=== PATIENT | male | born 1990 | race Caucasian/White ===

== ENCOUNTER 2016-04-23 18:18 | Emergency (ER) | payer SELFPAY ==
[~2016-04-23] VITALS: Ht 175.3 cm; Wt 74.8 kg
[2016-04-23 18:25] VITALS: BP 131/79
--- NOTE | 2016-04-23 19:15 | NUR ---
26 YO MALE BIB EMS FROM THE FIELD FOR ALTERED MENTAL STAUS DUE TO ETOH INTOXICATION. ER MD AT BEDSIDE, STEPHANIE BUCHANAN.
[2016-04-23 19:30] VITALS: BP 121/77
--- NOTE | 2016-04-23 19:30 | NUR ---
Patient discharged with v/s stable. Written and verbal after care instructions given and explained. Patient alert, oriented and verbalized understanding of instructions. Ambulatory with steady gait. All questions addressed prior to discharge. ID band removed. Patient advised to follow up with PMD.NONE Rx given. Patient educated on indication of medication including possible reaction and side effects. Opportunity to ask questions provided and answered.
== END 2016-04-23 19:30 | disposition home or self-care (01) ==
LOC: MED 18:18
DX: R41.82 Altered mental status, unspecified (principal); F10.129 Alcohol abuse with intoxication, unspecified; Y90.9 Presence of alcohol in blood, level not specified